=== PATIENT | female | born 1980 | race Two or more races ===

== ENCOUNTER 2016-08-30 17:46 | Emergency (ER) | payer OTHER ==
[~2016-08-30 17:46] MED LIST: ACET-704 PO; CEPH-264 PO; PROAIR HFA8.5 GM INH; PROM12.56 PO
[2016-08-30 20:26] LABS: BILIRUBIN,URINE NEGATIVE (NEG); GLUCOSE,URINE NEGATIVE (NEG); NITRITE,URINE NEGATIVE (NEG); PROTEIN,URINE NEGATIVE (NEG-TRACE); UROBILINOGEN,URINE 0.2 mg/dL (0.2 mg/dL)
[2016-08-30 20:39] LABS: BACTERIA,URINE FEW /HPF (0-FEW); RBC,URINE 0 /HPF (0-2)
[2016-08-30 20:40] LABS: SQUAMOUS EPITHELIAL CELL,UR MANY /LPF
[2016-08-30] MEDS ORDERED: ONDANSETRON PF 4 MG/2 ML VIAL. IV ONE (21:15)
[2016-08-30] MEDS ORDERED: MORPHINE SULFATE 4 MG/ML DISP.SYRIN. IV ONE (21:15)
[2016-08-30] MEDS ORDERED: IV NORMAL SALINE 1000ML BAG 1,000 ML IV SCH (21:15)
[2016-08-30 21:29] LABS: BASO % 0 % (0-3); EOS % 1 % (0-3); HEMATOCRIT 38.4 % (36.0-47.0); HEMOGLOBIN 12.7 g/dL (12.0-15.5); LYMPH % 42 % (24-48); MEAN CORPUSCULAR HEMOGLOBIN 27 pg (25-35); MEAN CORPUSCULAR HGB CONC 33 g/dL (31-37); MEAN CORPUSCULAR VOLUME 82 fL (79-100); MONO % 8 % (0-9); NEUT % 48 % (31-73); PLATELET COUNT 207 x10^3/uL (140-400); RED BLOOD COUNT 4.69 x10^6/uL (3.50-5.40); RED CELL DISTRIBUTION WIDTH 13.3 % (11.5-14.5); WHITE BLOOD COUNT 4.7 x10^3/uL (4.0-11.0)
[2016-08-30] MEDS ORDERED: CEFTRIAXONE 1GM IVPB FOR OMNI 50 ML IV ONE (21:30)
[2016-08-30 21:42] LABS: CREATININE 0.6 mg/dL (0.6-1.0); GFR 114.4; POTASSIUM 3.6 mmol/L (3.5-5.1)
[2016-08-30 21:48] LABS: ALBUMIN 4.2 g/dL (3.4-5.0); ALBUMIN/GLOBULIN RATIO 1.1 (1.0-1.7); TOTAL BILIRUBIN 0.5 mg/dL (0.2-1.0)
[2016-08-30] MEDS ORDERED: IBUPROFEN 800 MG TABLET. PO ONE (22:00)
[2016-08-30 22:30] VITALS: BP 114/76
[2016-08-30] MEDS ORDERED: SULF1TAB24 PO (22:54)
[2016-08-30] MEDS ORDERED: HYDR-971 PO (22:54)
[2016-08-30] MEDS ORDERED: ONDA4TAB10 SL (22:54)
--- NOTE | 2016-08-30 22:55 | PHYS DOC ---
Past Medical History Past Medical History: No Pertinent History Past Surgical History: No Surgical History Alcohol Use: None Drug Use: None Adult General Chief Complaint Chief Complaint: FLANK PAIN HPI HPI Patient is a 36 year old female who presents with bilateral flank pain. Patient has been having pain since yesterday. She also reports dysuria and nausea/vomiting. No fever. She has not taken anything for symptoms at home. She did have 1 prior similar episode. History obtained via bilingual nanny phone. Review of Systems Review of Systems Constitutional: Denies fever or chills Eyes: Denies change in visual acuity or eye pain HENT: Denies nasal congestion or sore throat Respiratory: Denies cough or shortness of breath Cardiovascular: Denies chest pain GI: Nausea/vomting. Denies abdominal pain, bloody stools or diarrhea : Dysuria Musculoskeletal: B/l flank pain Integument: Denies rash or skin lesions Neurologic: Denies focal weakness or sensory changes Current Medications Current Medications Current Medications Medications (Trade) Dose Ordered Sig/Jose Daniel Start Time Stop Time Status Last Admin Dose Admin Ceftriaxone Sodium (Rocephin 1gm Ivpb For Omni) 50 ml @ 100 mls/hr 1X ONCE 08/30/16 21:30 08/30/16 21:59 DC 08/30/16 21:30 100 MLS/HR Ibuprofen (Motrin) 800 mg 1X ONCE 08/30/16 22:00 08/30/16 22:01 DC 08/30/16 22:29 800 MG Morphine Sulfate 4 mg 4 mg 1X ONCE 08/30/16 21:15 08/30/16 21:16 DC 08/30/16 21:32 4 MG Ondansetron HCl (Zofran) 4 mg 1X ONCE 08/30/16 21:15 08/30/16 21:16 DC 08/30/16 21:32 4 MG Sodium Chloride (Iv Sodium Chloride 0.9% 1000ml Bag) 1,000 ml @ 1,000 mls/hr Q1H 08/30/16 21:15 08/30/16 22:14 DC 08/30/16 21:30 1,000 MLS/HR Allergies Allergies Allergies Coded Allergies Type Severity Reaction Last Updated Verified No Known Drug Allergies 12/06/15 No Physical Exam Physical Exam Constitutional: Well developed, well nourished, no acute distress, non-toxic appearance HENT: Normocephalic, atraumatic, bilateral external ears normal Eyes: EOMI, conjunctiva normal, no discharge Neck: Normal range of motion, no stridor Cardiovascular: Heart rate normal, regular rhythm, no murmur Lungs & Thorax: Bilateral breath sounds clear to auscultation Abdomen: Bowel sounds normal, soft, non-distended, no TTP Skin: Warm, dry, no erythema, no rash Back: B/l CVA tenderness Extremities: No obvious deformity, no edema Neurologic: Alert and oriented X 3, no gross deficits noted Current Patient Data Vital Signs Vital Signs Date Time Temp Pulse Resp B/P Pulse Ox O2 Delivery O2 Flow Rate FiO2 08/30/16 22:30 86 21 114/76 97 Room Air 08/30/16 18:34 97.9 97.9 Lab Values Laboratory Tests Test 08/30/16 19:24 08/30/16 20:15 08/30/16 20:33 POC Urine HCG, Qualitative Hcg negative (Negative) Urine Collection Type Unknown Urine Color Yellow Urine Clarity Clear Urine pH 6.0 Urine Specific [place] 1.025 Urine Protein Negativemg/dL (NEG-TRACE) Urine Glucose (UA) Negativemg/dL (NEG) Urine Ketones (Stick) Negativemg/dL (NEG) Urine Blood Negative (NEG) Urine Nitrite Negative (NEG) Urine Bilirubin Negative (NEG) Urine Urobilinogen Dipstick 0.2mg/dL (0.2 mg/dL) Urine Leukocyte Esterase Small (NEG) Urine RBC 0/HPF (0-2) Urine WBC 1-4/HPF (0-4) Urine Squamous Epithelial Cells Many/LPF Urine Bacteria Few/HPF (0-FEW) Urine Mucus Marked/LPF White Blood Count 4.7x10^3/uL (4.0-11.0) Red Blood Count 4.69x10^6/uL (3.50-5.40) Hemoglobin 12.7g/dL (12.0-15.5) Hematocrit 38.4% (36.0-47.0) Mean Corpuscular Volume 82fL (79-100) Mean Corpuscular Hemoglobin 27pg (25-35) Mean Corpuscular Hemoglobin Concent 33g/dL (31-37) Red Cell Distribution Width 13.3% (11.5-14.5) Platelet Count 207x10^3/uL (140-400) Neutrophils (%) (Auto) 48% (31-73) Lymphocytes (%) (Auto) 42% (24-48) Monocytes (%) (Auto) 8% (0-9) Eosinophils (%) (Auto) 1% (0-3) Basophils (%) (Auto) 0% (0-3) Neutrophils # (Auto) 2.2x10^3uL (1.8-7.7) Lymphocytes # (Auto) 2.0x10^3/uL (1.0-4.8) Monocytes # (Auto) 0.4x10^3/uL (0.0-1.1) Eosinophils # (Auto) 0.1x10^3/uL (0.0-0.7) Basophils # (Auto) 0.0x10^3/uL (0.0-0.2) Sodium Level 140mmol/L (136-145) Potassium Level 3.6mmol/L (3.5-5.1) Chloride Level 103mmol/L (98-107) Carbon Dioxide Level 27mmol/L (21-32) Anion Gap 10 (6-14) Blood Urea Nitrogen 12mg/dL (7-20) Creatinine 0.6mg/dL (0.6-1.0) Estimated GFR (Cockcroft-Gault) 114.4 BUN/Creatinine Ratio 20 (6-20) Glucose Level 102mg/dL (70-99) H Calcium Level 9.0mg/dL (8.5-10.1) Total Bilirubin 0.5mg/dL (0.2-1.0) Aspartate Amino Transferase (AST) 43U/L (15-37) H Alanine Aminotransferase (ALT) 97U/L (14-59) H Alkaline Phosphatase 92U/L (46-116) Total Protein 8.0g/dL (6.4-8.2) Albumin 4.2g/dL (3.4-5.0) Albumin/Globulin Ratio 1.1 (1.0-1.7) Lipase 143U/L (73-393) Laboratory Tests 08/30/16 20:33 Laboratory Tests 08/30/16 20:33 EKG EKG [] Radiology/Procedures Radiology/Procedures [] Course & Med Decision Making Course & Med Decision Making Pertinent Labs and Imaging studies reviewed. (See chart for details) Patient is 36-year-old female presents with bilateral flank pain, dysuria, nausea/vomiting. Suspect pyelonephritis. Labs, UA ordered to evaluate. Fluids, pain meds, nausea meds ordered for relief of symptoms. UA consistent with UTI given patient's complaints. Dose of Rocephin ordered. Discussed results with patient and her via bilingual nanny from. Will discharge home with course of antibiotics, pain meds, nausea meds. Given instructions for follow-up and return precautions. Dragon Disclaimer Dragon Disclaimer This electronic medical record was generated, in whole or in part, using a voice recognition dictation system. Departure Departure Impression: Primary Impression: Pyelonephritis Disposition: HOME, SELF-CARE Condition: STABLE Patient Instructions: Pyelonephritis, Adult Additional Instructions: Thank you for allowing us to provide care today in the Emergency Department. Take the provided medication as directed. Use caution when taking the pain medication as it can make you drowsy. Be sure to take the full course of antibiotics. Schedule a follow up appointment with your primary care doctor. Return promptly to the Emergency Department if you develop any new or concerning symptoms. Scripts Sulfamethoxazole/Trimethoprim (Bactrim Ds Tablet)1 Each Tablet1 Tab PO BID #20 TAB Prov:GERHARD RAMIREZ MD 08/30/16 Ondansetron (Zofran Odt)4 Mg Tab.rapdis1 Tab SL Q8HRS PRN NAUSEA #15 TAB Prov:GERHARD RAMIREZ MD 08/30/16 Hydrocodone/Apap 5-325 ([place] 5-325 Tablet)1 Each Tablet1 Tab PO PRN Q6HRS PRN PAIN #20 TAB Prov:GERHARD RAMIREZ MD 08/30/16 GERHARD RAMIREZ MD Aug 30, 2016 22:54
== END 2016-08-30 23:24 | disposition home or self-care (01) ==
LOC: ER 17:46
DX: N12 Tubulo-interstitial nephritis, not specified as acute or chronic (principal)
CPT/HCPCS: 36415; 80053; 81001; 83690; 84703; 85027; 87086; 96365; 96375; 99284; J0690; J2270; J2405; J7030; 81025

== ENCOUNTER 2016-12-03 10:11 | Emergency (ER) | payer MEDICAID, OTHER ==
[~2016-12-03] VITALS: Ht 157.5 cm; Wt 70.3 kg
[~2016-12-03 10:11] MED LIST changes: +HYDR-971 PO; +ONDA4TAB10 SL; +SULF1TAB24 PO
[2016-12-03] MEDS ORDERED: ONDANSETRON PF 4 MG/2 ML VIAL. IV ONE (10:30)
[2016-12-03] MEDS ORDERED: IV NORMAL SALINE 1000ML BAG 1,000 ML IV ONE (10:30)
[2016-12-03] MEDS ORDERED: KETOROLAC TROMETHAMINE 30 MG/ML INJ. IV ONE (10:30)
[2016-12-03 10:34] LABS: BILIRUBIN,URINE NEGATIVE (NEG); GLUCOSE,URINE NEGATIVE (NEG); NITRITE,URINE NEGATIVE (NEG); PROTEIN,URINE NEGATIVE (NEG-TRACE); UROBILINOGEN,URINE 0.2 mg/dL (0.2 mg/dL)
--- NOTE | 2016-12-03 10:45 | PHYS DOC ---
Past Medical History Past Medical History: UTI Past Surgical History: No Surgical History Alcohol Use: None Drug Use: None Adult General Chief Complaint Chief Complaint: FLANK PAIN HPI HPI Patient is a 36 year old female with history of UTI and pyelonephritis who presents today with bilateral flank pain radiating into the groin bilaterally that began 16 days ago. Patient denies any nausea or vomiting. She is also complaining of dysuria. Denies any fever. Denies any chance she is . Review of Systems Review of Systems Constitutional: Denies fever or chills [] Eyes: Denies change in visual acuity, redness, or eye pain [] HENT: Denies nasal congestion or sore throat [] Respiratory: Denies cough or shortness of breath [] Cardiovascular: No additional information not addressed in HPI [] GI: See history of present illness : bilateral flank pain radiating Musculoskeletal: Denies back pain or joint pain [] Integument: Denies rash or skin lesions [] Neurologic: Denies headache, focal weakness or sensory changes [] Endocrine: Denies polyuria or polydipsia [] Current Medications Current Medications Current Medications Medications (Trade) Dose Ordered Sig/Jose Daniel Start Time Stop Time Status Last Admin Dose Admin Ciprofloxacin Lactate 200 ml @ 200 mls/hr 1X ONCE 12/03/16 11:15 12/03/16 12:14 DC 12/03/16 11:25 200 MLS/HR Ketorolac Tromethamine (Toradol) 30 mg 1X ONCE 12/03/16 10:30 12/03/16 10:31 DC 12/03/16 11:04 30 MG Ondansetron HCl (Zofran) 4 mg 1X ONCE 12/03/16 10:30 12/03/16 10:31 DC 12/03/16 11:03 4 MG Sodium Chloride 1,000 ml @ 1,000 mls/hr 1X ONCE 12/03/16 10:30 12/03/16 11:29 DC 12/03/16 11:01 1,000 MLS/HR Allergies Allergies Allergies Coded Allergies Type Severity Reaction Last Updated Verified No Known Drug Allergies 12/06/15 No Physical Exam Physical Exam Constitutional: Well developed, well nourished, no acute distress, non-toxic appearance. [] HENT: Normocephalic, atraumatic, bilateral external ears normal, oropharynx moist, no oral exudates, nose normal. [] Eyes: PERRLA, EOMI, conjunctiva normal, no discharge. [] Neck: Normal range of motion, no tenderness, supple, no stridor. [] Cardiovascular:Heart rate regular rhythm, no murmur [] Lungs & Thorax: Bilateral breath sounds clear to auscultation [] Abdomen: Bowel sounds normal, soft, no tenderness, no masses, no pulsatile masses. [] Skin: Warm, dry, no erythema, no rash. [] Back: No tenderness, mild bilateral CVA tenderness. [] Extremities: No tenderness, no cyanosis, no clubbing, ROM intact, no edema. [] Neurologic: Alert and oriented X 3, normal motor function, normal sensory function, no focal deficits noted. [] Psychologic: Affect normal, judgement normal, mood normal. [] Current Patient Data Vital Signs Vital Signs Date Time Temp Pulse Resp B/P (MAP) Pulse Ox O2 Delivery O2 Flow Rate FiO2 12/03/16 10:20 98.4 76 18 124/69 (87) 95 Room Air 98.4 Lab Values Laboratory Tests Test 12/03/16 09:34 12/03/16 10:20 12/03/16 10:50 POC Urine HCG, Qualitative Hcg negative (Negative) Urine Collection Type Unknown Urine Color Yellow Urine Clarity Cloudy Urine pH 6.0 Urine Specific [place] 1.015 Urine Protein Negative mg/dL (NEG-TRACE) Urine Glucose (UA) Negative mg/dL (NEG) Urine Ketones (Stick) Negative mg/dL (NEG) Urine Blood Negative (NEG) Urine Nitrite Negative (NEG) Urine Bilirubin Negative (NEG) Urine Urobilinogen Dipstick 0.2 mg/dL (0.2 mg/dL) Urine Leukocyte Esterase Small (NEG) Urine RBC Occ /HPF (0-2) Urine WBC 11-20 /HPF (0-4) Urine Squamous Epithelial Cells Many /LPF Urine Bacteria Few /HPF (0-FEW) Urine Mucus Slight /LPF White Blood Count 5.4 x10^3/uL (4.0-11.0) Red Blood Count 4.97 x10^6/uL (3.50-5.40) Hemoglobin 13.4 g/dL (12.0-15.5) Hematocrit 39.2 % (36.0-47.0) Mean Corpuscular Volume 79 fL (79-100) Mean Corpuscular Hemoglobin 27 pg (25-35) Mean Corpuscular Hemoglobin Concent 34 g/dL (31-37) Red Cell Distribution Width 13.4 % (11.5-14.5) Platelet Count 187 x10^3/uL (140-400) Neutrophils (%) (Auto) 61 % (31-73) Lymphocytes (%) (Auto) 32 % (24-48) Monocytes (%) (Auto) 5 % (0-9) Eosinophils (%) (Auto) 2 % (0-3) Basophils (%) (Auto) 0 % (0-3) Neutrophils # (Auto) 3.3 x10^3uL (1.8-7.7) Lymphocytes # (Auto) 1.7 x10^3/uL (1.0-4.8) Monocytes # (Auto) 0.2 x10^3/uL (0.0-1.1) Eosinophils # (Auto) 0.1 x10^3/uL (0.0-0.7) Basophils # (Auto) 0.0 x10^3/uL (0.0-0.2) Sodium Level 141 mmol/L (136-145) Potassium Level 3.5 mmol/L (3.5-5.1) Chloride Level 107 mmol/L (98-107) Carbon Dioxide Level 27 mmol/L (21-32) Anion Gap 7 (6-14) Blood Urea Nitrogen 7 mg/dL (7-20) Creatinine 0.7 mg/dL (0.6-1.0) Estimated GFR (Cockcroft-Gault) 95.8 BUN/Creatinine Ratio 10 (6-20) Glucose Level 105 mg/dL (70-99) H Calcium Level 8.3 mg/dL (8.5-10.1) L Total Bilirubin 0.4 mg/dL (0.2-1.0) Aspartate Amino Transferase (AST) 16 U/L (15-37) Alanine Aminotransferase (ALT) 30 U/L (14-59) Alkaline Phosphatase 72 U/L (46-116) Total Protein 7.7 g/dL (6.4-8.2) Albumin 3.8 g/dL (3.4-5.0) Albumin/Globulin Ratio 1.0 (1.0-1.7) Lipase 156 U/L (73-393) Laboratory Tests 12/03/16 10:50 Laboratory Tests 12/03/16 10:50 EKG EKG [] Radiology/Procedures Radiology/Procedures [] Course & Med Decision Making Course & Med Decision Making Pertinent Labs and Imaging studies reviewed. (See chart for details) Patient is in the ED with complaints of bilateral flank pain. She has history of pyelonephritis and UTIs. CBC CMP lipase with no acute findings. Urine positive for infection. Patient has pyelonephritis. We will discharged with Cipro, first dose was given in the ED IV, Pyridium, naproxen and Flexeril. Follow-up with PCP in 1-2 weeks. [employer] line was used for [employer]. Dragon Disclaimer Dragon Disclaimer This electronic medical record was generated, in whole or in part, using a voice recognition dictation system. Departure Departure Impression: Primary Impression: Pyelonephritis Disposition: HOME, SELF-CARE Condition: STABLE Referrals: EUGENE ROA MD (PCP) Follow-up with your doctor in one week Patient Instructions: Pyelonephritis, Adult, [id number] Additional Instructions: You were seen for a kidney infection. Take the prescribed antibiotics until completed. Take the prescribed pain medicine as needed. Follow-up with your doctor in the next 1 week. Come back to the ED if symptoms worsen. Scripts Phenazopyridine Hcl (PYRIDIUM) 100 Mg Tablet 100 MG PO TID, #9 TAB Prov: TUNG MILLER APRN 12/03/16 Cyclobenzaprine Hcl (CYCLOBENZAPRINE HCL) 10 Mg Tablet 1 TAB PO TID, #30 TAB Prov: TUNG MILLER APRN 12/03/16 Naproxen (NAPROXEN) 500 Mg Tablet.dr 1 TAB PO BID, #60 TAB 2 Refills Prov: TUNG MILLER APRN 12/03/16 Promethazine Hcl (PROMETHAZINE HCL) 25 Mg Tablet 1 TAB PO PRN Q6HRS, #20 TAB Prov: TUNG MILLER APRN 12/03/16 Ciprofloxacin Hcl (CIPRO) 500 Mg Tablet 1 TAB PO BID, #14 TAB Prov: TUNG MILLER APRN 12/03/16 MUTTUNG KAMARA APRN Dec 03, 2016 10:45
[2016-12-03 10:56] LABS: BACTERIA,URINE FEW /HPF (0-FEW); RBC,URINE OCC /HPF (0-2); SQUAMOUS EPITHELIAL CELL,UR MANY /LPF
[2016-12-03 11:04] LABS: BASO % 0 % (0-3); EOS % 2 % (0-3); HEMATOCRIT 39.2 % (36.0-47.0); HEMOGLOBIN 13.4 g/dL (12.0-15.5); LYMPH # 1.7 x10^3/uL (1.0-4.8); LYMPH % 32 % (24-48); MEAN CORPUSCULAR HEMOGLOBIN 27 pg (25-35); MEAN CORPUSCULAR HGB CONC 34 g/dL (31-37); MEAN CORPUSCULAR VOLUME 79 fL (79-100); MONO % 5 % (0-9); NEUT % 61 % (31-73); PLATELET COUNT 187 x10^3/uL (140-400); RED BLOOD COUNT 4.97 x10^6/uL (3.50-5.40); RED CELL DISTRIBUTION WIDTH 13.4 % (11.5-14.5); WHITE BLOOD COUNT 5.4 x10^3/uL (4.0-11.0)
[2016-12-03] MEDS ORDERED: CIPROFLOXACIN 400MG PREMIX 200 ML IV ONE (11:15)
[2016-12-03 11:19] LABS: CALCIUM 8.3 mg/dL (8.5-10.1); CREATININE 0.7 mg/dL (0.6-1.0); GFR 95.8; POTASSIUM 3.5 mmol/L (3.5-5.1)
[2016-12-03 11:24] LABS: ALBUMIN 3.8 g/dL (3.4-5.0); TOTAL BILIRUBIN 0.4 mg/dL (0.2-1.0); TOTAL PROTEIN 7.7 g/dL (6.4-8.2)
[2016-12-03 12:29] VITALS: BP 106/58
[2016-12-03] MEDS ORDERED: PHEN100T82 PO (12:36)
[2016-12-03] MEDS ORDERED: PROM25TA10 PO (12:36)
[2016-12-03] MEDS ORDERED: CYCL10TA2 PO (12:36)
[2016-12-03] MEDS ORDERED: CIPR500T94 PO (12:36)
[2016-12-03] MEDS ORDERED: NAPR500T8 PO (12:36)
== END 2016-12-03 12:47 | disposition home or self-care (01) ==
LOC: ER 10:11
DX: N12 Tubulo-interstitial nephritis, not specified as acute or chronic (principal); Z87.440 Personal history of urinary (tract) infections
CPT/HCPCS: 36415; 80053; 81001; 81025; 83690; 85027; 87086; 96365; 96375; 99284; J0744; J1885; J2405; J7030

== ENCOUNTER 2017-04-29 13:16 | Emergency (ER) | payer OTHER ==
[~2017-04-29] VITALS: Ht 157.5 cm; Wt 60.3 kg
[~2017-04-29 13:16] MED LIST changes: +CIPR500T94 PO; +CYCL10TA2 PO; +NAPR500T8 PO; +PHEN100T82 PO; +PROM25TA10 PO
[2017-04-29 14:23] LABS: BILIRUBIN,URINE NEGATIVE (NEG); GLUCOSE,URINE NEGATIVE (NEG); NITRITE,URINE NEGATIVE (NEG); PROTEIN,URINE NEGATIVE (NEG-TRACE); UROBILINOGEN,URINE 0.2 mg/dL (0.2 mg/dL)
[2017-04-29 14:34] LABS: BACTERIA,URINE 0 /HPF (0-FEW); RBC,URINE OCC /HPF (0-2); SQUAMOUS EPITHELIAL CELL,UR MOD /LPF
[2017-04-29 14:36] LABS: WBC,URINE RARE /HPF (0-4)
[2017-04-29] MEDS ORDERED: KETOROLAC 60 MG/2 ML INJ. IM ONE (16:15)
[2017-04-29 16:56] LABS: BASO % 1 % (0-3); EOS % 1 % (0-3); HEMATOCRIT 39.8 % (36.0-47.0); HEMOGLOBIN 13.4 g/dL (12.0-15.5); LYMPH # 2.1 x10^3/uL (1.0-4.8); LYMPH % 38 % (24-48); MEAN CORPUSCULAR HEMOGLOBIN 27 pg (25-35); MEAN CORPUSCULAR HGB CONC 34 g/dL (31-37); MEAN CORPUSCULAR VOLUME 82 fL (79-100); MONO % 6 % (0-9); NEUT % 54 % (31-73); PLATELET COUNT 187 x10^3/uL (140-400); RED BLOOD COUNT 4.88 x10^6/uL (3.50-5.40); WHITE BLOOD COUNT 5.6 x10^3/uL (4.0-11.0)
[2017-04-29 17:00] VITALS: BP 124/67
[2017-04-29 17:09] LABS: CALCIUM 8.8 mg/dL (8.5-10.1); CREATININE 0.8 mg/dL (0.6-1.0); GFR 82.1; POTASSIUM 3.3 mmol/L (3.5-5.1)
--- NOTE | 2017-04-29 17:13 | RAD ---
Ultrasound right upper quadrant of the abdomen 04/29/2017 Clinical history: Right upper quadrant abdominal pain and vomiting. Technique: A real-time ultrasound examination right upper quadrant of the abdomen was performed. Multiple images were obtained. Findings: Comparison is made to patient's CT scan of the abdomen dated 05/21/2012. The gallbladder is contracted. The patient was not NPO for this examination and recently ate lunch. No gallstones are visualized. The gallbladder wall thickness is difficult to evaluate due to the contracted nature of the gallbladder. No free fluid is seen. The common bile duct measures 3 mm in diameter which is within normal limits. The liver is normal in size measuring 16.5 cm in length. Increased echogenicity of the liver parenchyma seen consistent with mild fatty infiltration. The right kidney is within normal limits. The pancreas is not well visualized due to overlying bowel gas. Impression: 1. Mild fatty infiltration of the liver. 2. Otherwise negative study.
[2017-04-29 17:16] LABS: ALBUMIN 4.1 g/dL (3.4-5.0); TOTAL BILIRUBIN 0.3 mg/dL (0.2-1.0); TOTAL PROTEIN 8.1 g/dL (6.4-8.2)
[2017-04-29] MEDS ORDERED: POTASSIUM CHLORIDE 20 MEQ TABLET.ER. PO ONE (17:30)
[2017-04-29] MEDS ORDERED: CYCLOBENZAPRINE 10 MG TABLET. PO ONE (17:30)
[2017-04-29] MEDS ORDERED: CYCL5TAB PO (17:35)
[2017-04-29] MEDS ORDERED: ONDA4TAB10 SL (17:35)
--- NOTE | 2017-04-29 17:35 | PHYS DOC ---
Past Medical History Past Medical History: No Pertinent History Past Surgical History: No Surgical History Alcohol Use: None Drug Use: None Adult General Chief Complaint Chief Complaint: FLANK PAIN HPI HPI Patient is a 36 year old female who presents with flank pain. The patient reports 2 week history of bilateral flank pain greater on the right, as well as right upper quadrant abdominal pain. She reports that she sometimes has burning sensation with urination. She feels nauseated at times. She denies fevers/chills, vomiting, diarrhea, constipation, hematochezia/melena, hematuria , vaginal bleeding/discharge. She has no known past medical history, denies history of abdominal surgeries. She does not have a PCP. The patient speaks Spanish, is accompanied by a family member who is interpreting as needed. Review of Systems Review of Systems Constitutional: Denies fever or chills HENT: Denies nasal congestion or sore throat Respiratory: Denies cough or shortness of breath Cardiovascular: Denies chest pain or edema GI: Reports abdominal pain, nausea, vomiting, denies bloody stools or diarrhea : Reports dysuria, denies hematuria Musculoskeletal: Denies back pain or joint pain Integument: Denies rash or skin lesions Neurologic: Denies headache, focal weakness or sensory changes All other systems were reviewed and found to be within normal limits, except as documented in this note. Current Medications Current Medications Current Medications Medications (Trade) Dose Ordered Sig/Jose Daniel Start Time Stop Time Status Last Admin Dose Admin Cyclobenzaprine HCl (Flexeril) 10 mg 1X ONCE 04/29/17 17:30 04/29/17 17:31 DC 04/29/17 17:24 10 MG Ketorolac Tromethamine (Toradol Im) 60 mg 1X ONCE 04/29/17 16:15 04/29/17 16:16 DC 04/29/17 16:19 60 MG Potassium Chloride (Klor-Con) 40 meq 1X ONCE 04/29/17 17:30 04/29/17 17:32 DC 04/29/17 17:45 40 MEQ Allergies Allergies Allergies Coded Allergies Type Severity Reaction Last Updated Verified No Known Drug Allergies 12/06/15 No Physical Exam Physical Exam Constitutional: Well developed, well nourished, no acute distress, non-toxic appearance. HENT: Normocephalic, atraumatic, bilateral external ears normal, oropharynx moist, nose normal. Eyes: conjunctiva normal, no discharge. Neck: supple, no stridor. Cardiovascular: RRR, no murmurs, no edema. Lungs & Thorax: LCTAB, no wheezing, no respiratory distress. Abdomen: soft, mild right upper quadrant tenderness with palpation without rebound/guarding, no masses or pulsatile masses, nondistended. Skin: Warm, dry, no erythema, no rash. Back: No CVA tenderness with palpation. Extremities: No tenderness, no edema. Neurologic: Alert and oriented X 3, no focal deficits noted. Psychologic: Affect normal, judgement normal, mood normal. Current Patient Data Vital Signs Vital Signs Date Time Temp Pulse Resp B/P (MAP) Pulse Ox O2 Delivery O2 Flow Rate FiO2 04/29/17 17:00 84 124/67 (86) 04/29/17 16:30 98 04/29/17 13:42 98.1 18 Room Air 98.1 Lab Values Laboratory Tests Test 04/29/17 14:10 04/29/17 16:43 Urine Collection Type Unknown Urine Color Yellow Urine Clarity Clear Urine pH 7.0 Urine Specific [place] 1.015 Urine Protein Negative mg/dL (NEG-TRACE) Urine Glucose (UA) Negative mg/dL (NEG) Urine Ketones (Stick) Negative mg/dL (NEG) Urine Blood Negative (NEG) Urine Nitrite Negative (NEG) Urine Bilirubin Negative (NEG) Urine Urobilinogen Dipstick 0.2 mg/dL (0.2 mg/dL) Urine Leukocyte Esterase Small (NEG) Urine RBC Occ /HPF (0-2) Urine WBC Rare /HPF (0-4) Urine Squamous Epithelial Cells Mod /LPF Urine Bacteria 0 /HPF (0-FEW) POC Urine HCG, Qualitative Hcg negative (Negative) White Blood Count 5.6 x10^3/uL (4.0-11.0) Red Blood Count 4.88 x10^6/uL (3.50-5.40) Hemoglobin 13.4 g/dL (12.0-15.5) Hematocrit 39.8 % (36.0-47.0) Mean Corpuscular Volume 82 fL (79-100) Mean Corpuscular Hemoglobin 27 pg (25-35) Mean Corpuscular Hemoglobin Concent 34 g/dL (31-37) Red Cell Distribution Width 13.0 % (11.5-14.5) Platelet Count 187 x10^3/uL (140-400) Neutrophils (%) (Auto) 54 % (31-73) Lymphocytes (%) (Auto) 38 % (24-48) Monocytes (%) (Auto) 6 % (0-9) Eosinophils (%) (Auto) 1 % (0-3) Basophils (%) (Auto) 1 % (0-3) Neutrophils # (Auto) 3.0 x10^3uL (1.8-7.7) Lymphocytes # (Auto) 2.1 x10^3/uL (1.0-4.8) Monocytes # (Auto) 0.3 x10^3/uL (0.0-1.1) Eosinophils # (Auto) 0.1 x10^3/uL (0.0-0.7) Basophils # (Auto) 0.0 x10^3/uL (0.0-0.2) Sodium Level 142 mmol/L (136-145) Potassium Level 3.3 mmol/L (3.5-5.1) L Chloride Level 106 mmol/L (98-107) Carbon Dioxide Level 26 mmol/L (21-32) Anion Gap 10 (6-14) Blood Urea Nitrogen 8 mg/dL (7-20) Creatinine 0.8 mg/dL (0.6-1.0) Estimated GFR (Cockcroft-Gault) 82.1 BUN/Creatinine Ratio 10 (6-20) Glucose Level 123 mg/dL (70-99) H Calcium Level 8.8 mg/dL (8.5-10.1) Total Bilirubin 0.3 mg/dL (0.2-1.0) Aspartate Amino Transferase (AST) 20 U/L (15-37) Alanine Aminotransferase (ALT) 37 U/L (14-59) Alkaline Phosphatase 77 U/L (46-116) Total Protein 8.1 g/dL (6.4-8.2) Albumin 4.1 g/dL (3.4-5.0) Albumin/Globulin Ratio 1.0 (1.0-1.7) Lipase 187 U/L (73-393) Laboratory Tests 04/29/17 16:43 Laboratory Tests 04/29/17 16:43 EKG EKG [] Radiology/Procedures Radiology/Procedures PROCEDURE: ABDOMEN LTD Ultrasound right upper quadrant of the abdomen 04/29/2017 Clinical history: Right upper quadrant abdominal pain and vomiting. Technique: A real-time ultrasound examination right upper quadrant of the abdomen was performed. Multiple images were obtained. Findings: Comparison is made to patient's CT scan of the abdomen dated 05/21/2012. The gallbladder is contracted. The patient was not NPO for this examination and recently ate lunch. No gallstones are visualized. The gallbladder wall thickness is difficult to evaluate due to the contracted nature of the gallbladder. No free fluid is seen. The common bile duct measures 3 mm in diameter which is within normal limits. The liver is normal in size measuring 16.5 cm in length. Increased echogenicity of the liver parenchyma seen consistent with mild fatty infiltration. The right kidney is within normal limits. The pancreas is not well visualized due to overlying bowel gas. Impression: 1. Mild fatty infiltration of the liver. 2. Otherwise negative study. DICTATED and SIGNED BY: MARIANA LOPES MD DATE: 04/29/17 1707[] Course & Med Decision Making Course & Med Decision Making Pertinent Labs and Imaging studies reviewed. (See chart for details) The patient presents with right upper quadrant & right flank pain. Gave pain medication here. Obtained labs, UA, US of the right upper quadrant. No serious cause of symptoms was identified. Potassium replaced orally. She felt better after treatment. Recommend rest, hydration, tylenol or ibuprofen for pain, try flexeril for muscle spasms, follow up with primary care if not improving in 2-3 days. Come back for high fever, severe pain, uncontrolled vomiting, any otherwise worsening condition. Discharged home in stable condition. [] Dragon Disclaimer Dragon Disclaimer This electronic medical record was generated, in whole or in part, using a voice recognition dictation system. Departure Departure Impression: Primary Impression: Flank pain Disposition: 01 HOME, SELF-CARE Condition: STABLE Referrals: EUGENE ROA MD (PCP) Patient Instructions: Flank Pain, [id number] Additional Instructions: You were seen in the emergency department today for pain. Your tests here did not show a serious cause of symptoms. Please rest, apply heating pads, take Tylenol or ibuprofen for pain. Use Flexeril for muscle spasm. Take Zofran as needed for nausea. Follow-up with primary care physician if not improving in 2- 3 days. Return to the emergency department for high fever, severe pain, uncontrolled vomiting, numbness or weakness in legs, loss of control of bowels or bladder, any otherwise worsening condition. Scripts Ondansetron (ZOFRAN ODT) 4 Mg Tab.rapdis 1 TAB SL Q8HRS Y for NAUSEA/VOMITING, #10 TAB Prov: KIERRA GARCIA MD 04/29/17 Cyclobenzaprine Hcl (CYCLOBENZAPRINE HCL) 5 Mg Tablet 1 TAB PO TID Y for MUSCLE SPASMS, #10 TAB Prov: KIERRA GARCIA MD 04/29/17 KIERRA GARCIA MD Apr 29, 2017 17:35
== END 2017-04-29 17:49 | disposition home or self-care (01) ==
LOC: ER 13:16
DX: R10.11 Right upper quadrant pain (principal); R11.0 Nausea; R30.0 Dysuria
CPT/HCPCS: 36415; 76705; 80053; 81001; 81025; 83690; 85025; 87086; 96372; 99285; J1885

== ENCOUNTER 2020-12-06 23:44 | Emergency (ER) | payer OTHER ==
[~2020-12-06 23:44] MED LIST changes: +ALBU2.5V8 INH; +CYCL5TAB PO; +HYDR-3164 PO; -HYDR-971 PO; -PROAIR HFA8.5 GM INH; -PROM12.56 PO; +PROM12.58 PO
== END 2020-12-07 01:30 | disposition left against medical advice (07) ==
LOC: ER 23:44
DX: R10.9 Unspecified abdominal pain (principal); Z53.21 Procedure and treatment not carried out due to patient leaving prior to being seen by health care provider